=== PATIENT | male | born 1950 | race Caucasian/White ===

== ENCOUNTER 2016-09-11 15:28 | Emergency (ER) | payer MEDICARE, OTHER ==
--- NOTE | 2016-09-11 16:47 | RAD ---
Exam: Two-view chest COMPARISON: 07/13/2013, 10/28/2012, 10/21/2012 INDICATION: Cough, pulmonary fibrosis. Findings: PA and lateral views of the chest were obtained. Cardiac silhouette is within normal limits and stable. There is chronic prominence of the bronchovascular markings. There is no pulmonary edema, focal airspace disease or pleural effusion. Bones of the chest wall within normal limits. IMPRESSION: Stable exam dating back to 2012 without acute pulmonary process or significant interval change.
[2016-09-11] MEDS ORDERED: ALBUTEROL/IPRATROPIUM 2.5/0.5 MG 3 ML/EACH DOSE ONE (16:56)
== END 2016-09-11 17:20 | disposition home or self-care (01) ==
LOC: ED 15:28
DX: R05 Cough (principal); J45.909 Unspecified asthma, uncomplicated; I25.10 Atherosclerotic heart disease of native coronary artery without angina pectoris; I10 Essential (primary) hypertension; Z87.891 Personal history of nicotine dependence